=== PATIENT | female | born 1965 | race Caucasian/White ===

== ENCOUNTER 2017-10-22 20:02 | Emergency (ER) | payer OTHER ==
[~2017-10-22 20:02] MED LIST: AUGMENTIN 875-1 EACH PO; CRESTOR20 MG PO; CYCLOBENZAPRINE10 M3 PO; E400400 IU PO; ECOTRIN81 MG PO; FIORICET 325 MG1 TAB PO; FLEXERIL10 MG PO; GEMFIBROZIL600 MG PO; INDOMETHACIN50 M1 PO; LISINOPRIL20 MG PO; MAGNESIUM OXID400 MG PO; METFORMIN500 MG PO; NASONEX0.05 MG/Ac NAS; ORPHENADRINE C100 MG PO; PERCOCET 325 MG1 TA2 PO; PERCOCET 5-3251 EACH PO
--- NOTE | 2017-10-22 21:46 | RADIOLOGY REPORT ---
EXAMINATION: XR FINGER, LEFT CLINICAL INFORMATION: Trauma COMPARISON: None TECHNIQUE: 3 views of the fourth finger. There is very small bony density along the ulnar aspect of the DIP joint of the fourth digit. This may be degenerative in nature. Small avulsion cannot be excluded. There is a lucency through the distal tuft. Fracture here would need to be considered. IMPRESSION: Lucency through the distal aspect of the distal phalanx. Fracture here needs to be considered. Nondisplaced.
--- NOTE | 2017-10-22 22:16 | ED HAND/WRIST INJURY COMPLAINT ---
History of Present Illness General Chief Complaint: Laceration Procedure Stated Complaint: SEEN SUNDAYFOR LAC, SAME SITE SLAMMED IN DOOR. Source: patient, old records Exam Limitations: no limitations Vital Signs & Intake/Output Vital Signs & Intake/Output Vital Signs Date Time Temp Pulse Resp B/P B/P Pulse O2 O2 Flow FiO2 Mean Ox Delivery Rate 10/22 2250 98.2 87 20 147/74 97 Room Air 10/22 2101 98.2 80 16 157/97 98 Room Air Room Air Allergies Coded Allergies: MDX - Morphine (MORPHINE) (Severe, ARM SWELLING 10/22/17) MDX - SULFA (sulfonamide) (SULFA (SULFONAMIDE)) (HIVES 10/22/17) Reconcile Medications Amoxicillin/Potassium Clav (Augmentin 875-125 Tablet) 875 MG-125 MG TABLET 1 TAB PO BID PPX Aspirin (Ecotrin) 81 MG ECT 1 TAB PO DAILY HEART (Reported) CYCLOBENZAPRINE HCL (Cyclobenzaprine Hydrochloride) 10 MG TABLET 1 TAB PO AT BEDTIME PRN MUSCLE SPASMS (Reported) CYCLOBENZAPRINE HCL (Flexeril) 10 MG TABLET 1 TAB PO TID . Gemfibrozil 600 MG TABLET 1 TAB PO BID CHOLESTEROL/TRIGLYCERIDES (Reported) Indomethacin 50 MG CAPSULE 1 CAP PO TID PRN back pain/thigh burning with food Lisinopril 20 MG TABLET 1 TAB PO DAILY HTN (Reported) Magnesium Oxide (Unknown Strength) TABLET (Unknown Dose) PO DAILY SUPPLEMENT (Reported) METFORMIN HCL (Metformin) 500 MG TABLET 1 TAB PO BID DIABETES (Reported) Mometasone Furoate (Nasonex) 0.05 MG/Actuation SPR 1 SPRAY ANTHONY DAILY ALLERGIES (Reported) Orphenadrine Citrate 100 MG TABLET.ER 1 TAB PO BID PRN MUSCLE PAIN/SPASMS Oxycodone HCl/Acetaminophen (Percocet 5-325 MG Tablet) 5 MG-325 MG TABLET 1 TAB PO BID PRN PAIN OXYCODONE HCL/ACETAMINOPHEN (Percocet 5-325 MG Tablet) 325 MG/5 MG TAB 1 TAB PO Q4-6 PRN PRN PAIN Rosuvastatin Calcium (Crestor) 20 MG TABLET 1 TAB PO DAILY CHOLESTEROL ( Reported) Vitamin E (E400) 400 IU SGL 1 TAB PO DAILY SUPPLEMENT (Reported) Triage Note: PT TO TRIAGE WITH LEFT RING FINGER PAIN AFTER SLAMMING IN DOOR. PT HAS STITCHES FROM DOG BITES THIS PAST WEEKNED Triage Nurses Notes Reviewed? yes Occurred: last week Duration: day(s): (5), constant, continues in ED, getting worse Timing: single episode today Injury Environment: home Severity: moderate, severe Severity Numbers: 6 Pain/Injury Location: Left: 4th finger. Context: blow Method of Injury: direct blow No Modifying Factors: none Associated Symptoms: swelling, redness LMP (ages 10-50): unknown : No Patient currently breastfeeds: No HPI: 52-year-old female past medical history of hypertension, hyperlipidemia, diabetes presents for evaluation of pain and swelling and redness in her left fourth digit. Patient was seen here several days ago for a dog bite to the left fourth digit. She was started on antibiotics and had the wound sutured closed. She states that today she was doing well until she slammed the finger in a door. She reports pain worsening swelling in the distal segment of the finger. The pain is worse with movement. There was no bleeding no numbness or tingling. The redness is not spreading there's been no discharge. No other injuries. She has not taken any medicine for this she rates her pain as a 6 out of 10. (Yan Grande) Past History Travel History Traveled to [place] past 21 day No Medical History Any Pertinent Medical History? see below for history Neurological: BELLS PALSY EENT: NONE Cardiovascular: hypertension, hyperlipidemia Gastrointestinal: diverticulitis Musculoskeletal: CHRONIC NECK AND BACK PAIN Endocrine: diabetes Tetanus Vaccine: 03/05/17 Surgical History Surgical History: non-contributory Psychosocial History Who do you live with Patient and family Services at Home NO What is your primary language Faroese Tobacco Use: Never used Family History Hx Contributory? No (Yan Grande) Review of Systems Review of Systems Constitutional: Reports: no symptoms. EENTM: Reports: no symptoms. Respiratory: Reports: no symptoms. Cardiovascular: Reports: no symptoms. GI: Reports: no symptoms. Genitourinary: Reports: no symptoms. Musculoskeletal: Reports: joint pain, joint swelling, muscle pain. Skin: Reports: see HPI. Neurological/Psychological: Reports: no symptoms. Hematologic/Endocrine: Reports: no symptoms. Immunologic/Allergic: Reports: no symptoms. All Other Systems: Reviewed and Negative (Yan Grande) Physical Exam Physical Exam General Appearance: well developed/nourished, no apparent distress, alert, awake Head: atraumatic, normal appearance Eyes: Bilateral: normal appearance, EOMI. Ears, Nose, Throat: hearing grossly normal Neck: normal inspection, full range of motion Cardiovascular/Respiratory: no respiratory distress Back: normal inspection, normal range of motion Forearm Left: normal range of motion, normal inspection Forearm Right: normal range of motion, normal inspection Wrist Left: normal range of motion, normal inspection Wrist Right: normal range of motion, normal inspection Hand Left: lacerations, limited range of motion, evidence of injury, swelling, tender, 4th finger, THERE IS A SUTURED LACERATION OVER THE DISTAL SEGMENT OF THE LEFT FOURTH DIGIT. tHERE IS SOME SURROUNDING SOFT TISSUE SWELLING. nO ERYTHEMA OR PURULENT DISCHARGE. nO SUBUNGUAL HEMATOMA OR NAIL DAMAGE. fULL RANGE OF MOTION OF THE FOURTH DIGIT IS INTACT WITH PAIN. nEUROVASCULAR SUPPLY IS INTACT NO OTHER INJURIES THE REMAINING DIGITS Hand Right: normal inspection, normal range of motion Neurologic/Tendon: normal sensation, normal motor functions, normal tendon functions, no evidence tendon injury, no pulse deficit Skin: intact, normal color, warm/dry (Yan Grande) Progress Differential Diagnosis: abscess, cellulitis, fracture, septic arthritis, sprain, tenosynovitis Plan of Care: Patient seen and evaluated. The sutures from the dog bite appeared intact. She is neurovascularly intact. An x-ray was obtained of the digit which shows a possible subtle fracture of the distal segment of the left fourth digit. The finger was cleaned with sterile water and Betadine sterile dressing and finger splint applied. Continue antibiotics as directed for full course. Rest apply ice. Discussed return to caution. Follow-up with hand surgeon. Return in 2 or 3 days for wound check. Discussed return precautions patient appears well she agrees. Diagnostic Imaging: Viewed by Me: Radiology Read. Discussed w/RAD: Radiology Read. Radiology Impression: ATIENT: ANNALISE CORTEZ PRESENT AGE: 52 PATIENT ACCOUNT NO: [id number] : 63 LOCATION: [facility] ORDERING PHYSICIAN: Yan BRYANT SERVICE DATE: 10/22/17 EXAM TYPE: RAD - XRY- FINGERS, LEFT EXAMINATION: XR FINGER, LEFT CLINICAL INFORMATION: Trauma COMPARISON: None TECHNIQUE: 3 views of the fourth finger. There is very small bony density along the ulnar aspect of the DIP joint of the fourth digit. This may be degenerative in nature. Small avulsion cannot be excluded. There is a lucency through the distal tuft. Fracture here would need to be considered. IMPRESSION: Lucency through the distal aspect of the distal phalanx. Fracture here needs to be considered. Nondisplaced. DICTATED BY: Merlin George MD DATE/ TIME DICTATED:10/22/172128 FARM AGENT:JENNIE DATE/TIME TRANSCRIBED: 10/22/172128 CONFIDENTIAL, DO NOT COPY WITHOUT APPROPRIATE AUTHORIZATION. < Electronically signed in Other Vendor System> SIGNED BY: Merlin George MD 10/22/172145 (Yan Grande) Departure Departure Disposition: HOME OR SELF CARE Condition: Stable Clinical Impression Primary Impression: Finger fracture, left Qualifiers: Encounter type: initial encounter Finger: middle finger Fracture type: closed Phalanx: distal Fracture alignment: nondisplaced Qualified Code: S62.663A - Nondisplaced fracture of distal phalanx of left middle finger, initial encounter for closed fracture Referrals: Toby RAIN,Tao Wong (PCP/Family) Additional Instructions: Rest, avoid excessive physical activity. Apply ice 15-20 minutes every few hours. Tylenol or ibuprofen as needed for pain. Vicodin for severe pain only this may cause drowsiness. Continue antibiotics as directed for the full course. Follow up with her hand surgeon on the as scheduled. Monitor symptoms return with any concerns. Departure Forms: Customer Survey General Discharge Information (Yan Grande) PA/PROMOTIONAL REPRESENTATIVE Co-Sign Statement Statement: ED Attending supervision documentation- [] I saw and evaluated the patient. I have also reviewed all the pertinent lab results and diagnostic results. I agree with the findings and the plan of care as documented in the PA's/PROMOTIONAL REPRESENTATIVE's documentation. [X] I have reviewed the ED Record and agree with the PA's/PROMOTIONAL REPRESENTATIVE's documentation. [] Additions or exceptions (if any) to the PAs/PROMOTIONAL REPRESENTATIVE's note and plan are summarized below: [] (Farideh RAIN,Jose Caraballo)
[2017-10-22 22:50] VITALS: BP 147/74
== END 2017-10-22 22:51 ==
LOC: ERH 20:02
DX: S62.631A Displaced fracture of distal phalanx of left index finger, initial encounter for closed fracture (principal); W54.0XXA Bitten by dog, initial encounter; Y92.9 Unspecified place or not applicable; Y93.9 Activity, unspecified
CPT/HCPCS: 73140-LT